=== PATIENT | female | born 1990 | race Caucasian/White ===

== ENCOUNTER 2016-08-20 03:00 | Emergency (ER) | payer BC ==
[2016-08-20 03:53] VITALS: BP 134/80
[2016-08-20] MEDS ORDERED: OXYCODONE-ACETAMINOPHEN 5-325 MG TABLET PO ONE (03:53)
[2016-08-20] MEDS ORDERED: PENICILLIN V POTASSIUM 500 MG TABLET PO ONE (03:53)
[2016-08-20] MEDS ORDERED: ONDANSETRON 4 MG TAB.RAPDIS PO ONE (03:53)
--- NOTE | 2016-08-20 03:58 | ER Document Report ---
HPI - HPI Patient complains to provider of: dental pain Pain Level: 5 Context: Patient is a 26-year-old female that comes emergency department for chief complaint of pain in her right lower tooth/jaw area. Patient denies sore throat , fever, neck pain. Pain radiates up towards her right ear. She denies known fracture of the teeth, she denies history of dental infections, she denies any daily medications or any past medical history. LMP within the past month. - DERM Skin Color: Normal Past Medical History - General Information source: Patient - Social History Smoking Status: Never Smoker Drug Abuse: None Lives with: Alone Family History: Reviewed & Not Pertinent Patient has suicidal ideation: No Patient has homicidal ideation: No - Medical History Medical History: Negative Renal/ Medical History: Denies: Hx Peritoneal Dialysis Surgical Hx: Negative - Immunizations Hx Diphtheria, Pertussis, Tetanus Vaccination: Yes Vertical Provider Document - CONSTITUTIONAL General Appearance: WD/WN, Mild Distress - Patient appears to be in some obvious discomfort but is not in any significant distress - INFECTION CONTROL TRAVEL OUTSIDE OF THE [place] IN LAST 30 DAYS: No - HEENT HEENT: Atraumatic, Normocephalic, PERRLA. negative: Conjuctival Injection, Pharyngeal Exudate, Pharyngeal Tenderness, Pharyngeal Erythema, Tympanic Membrane Red, Tympanic Membrane Bulging Mouth Diagram: 1 - Dental breakdown/caries with mild surrounding erythema, no drainable abscess noted, otherwise unremarkable exam - NECK Neck: Normal Inspection - RESPIRATORY Respiratory: Breath Sounds Normal, No Respiratory Distress O2 Sat by Pulse Oximetry: 99 - CARDIOVASCULAR Cardiovascular: Regular Rate, Regular Rhythm - GI/ABDOMEN Gastrointestinal: Abdomen Soft, Abdomen Non-Tender - MUSCULOSKELETAL/EXTREMETIES Musculoskeletal/Extremeties: MAEW, FROM, Non-Tender - NEURO Level of Consciousness: Awake, Alert, Appropriate - DERM Integumentary: Warm, Dry, No Rash Course - Re-evaluation Re-evalutation: Offered patient dental block, patient agrees gladly, patient had excellent results and expresses gratefulness. Provided with medications for dental infection, dental discount list, discussed follow-up and return precautions, patient states understanding and agreement - Vital Signs Vital signs: Temp Pulse Resp BP Pulse Ox 98.4 F 58 L 20 134/80 H 99 08/20/16 03:50 08/20/16 03:50 08/20/16 03:50 08/20/16 03:50 08/20/16 03:50 Procedures - Additional Procedures dental block Additional Procedures: Other - Inferior alveolar dental block performed on the right side, states 0.75% bupivacaine, after drawback 3 mL's were placed. Patient had excellent anesthesia in less than 1 minute afterwards. Minimal to no bleeding, no complications. Discharge - Discharge Clinical Impression: Dental infection, Pain, dental Condition: Stable Disposition: HOME, SELF-CARE Additional Instructions: Examination is consistent with a tooth infection, take antibiotics to completion , take pain medication if needed, follow-up closely with the dentist or this will continue to happen. Return to the emergency department for any concerning or worsening symptoms including swelling to the face/jaw. Prescriptions: Oxycodone HCl/Acetaminophen [Percocet 5-325 mg Tablet] 1 - 2 tab PO Q4H PRN #15 tablet PRN Reason: Penicillin V Potassium [Penicillin Vk 500 mg Tablet] 500 mg PO BID #20 tablet Forms: Return to Work
[2016-08-20] MEDS ORDERED: BUPIVACAINE HCL 0.75% INJ/PF (7.5 MG/1 ML) 10 ML SDV INJ ONE (04:01)
== END 2016-08-20 05:01 | disposition home or self-care (01) ==
LOC: ER 03:00
PROC: 3E0T3BZ Introduction of Anesthetic Agent into Peripheral Nerves and Plexi, Percutaneous Approach (ICD-10-PCS; principal; 2016-08-20)
DX: K04.7 Periapical abscess without sinus (principal); K08.9 Disorder of teeth and supporting structures, unspecified
CPT/HCPCS: 99282